=== PATIENT | female | born 1940 | race Caucasian/White ===

== ENCOUNTER 2016-12-09 23:34 | Emergency (ER) | payer OTHER ==
[~2016-12-09] VITALS: Ht 152.4 cm; Wt 49.8 kg
[2016-12-09 23:36] VITALS: TEMP 36.7; Ht 152.4 cm; Wt 49.8 kg
[2016-12-09] MEDS ORDERED: KETOROLAC TROMETHAMINE 30 MG/ML VIAL IV STA (23:57)
[2016-12-10] MEDS ORDERED: AMLO-110 PO (00:08)
[2016-12-10] MEDS ORDERED: ACET-1256 PO (00:08)
[2016-12-10] MEDS ORDERED: CITA10TA4 PO (00:09)
[2016-12-10 00:21] LABS: COMPLETE YES; EOS % 0.1 %; HEMATOCRIT 35.4 % (37-47); IG% 0.4 %; LYMPH % 7.2 %; LYMPH ABS # 0.72 K/uL (1.2-3.4); MEAN CELL VOLUME 86.6 fL (80-100); MEAN CORPUSCULAR HEMOGLOBIN 30.3 pg (25-34); MEAN PLATELET VOLUME 9.1 fL (7.4-10.4); MONO % 3.7 %; NEUT % 88.6 %; PLATELET COUNT 403 K/uL (130-400); RED BLOOD COUNT 4.09 M/uL (4.2-5.4); WHITE BLOOD COUNT 9.97 K/uL (4.8-10.8)
[2016-12-10 00:40] LABS: BUN/CREATININE RATIO 13.7 (10-20); CALCIUM 9.2 mg/dl (8.5-10.1); CREATININE 0.78 mg/dl (0.60-1.20); POTASSIUM 3.8 mmol/L (3.5-5.1)
[2016-12-10 00:42] LABS: ALB/GLOB RATIO 0.6 (0.9-2)
[2016-12-10] MEDS ORDERED: HYDROmorphone INJ 0.5 MG/0.5 ML SYR IV STA (01:09)
[2016-12-10] MEDS ORDERED: OXYC-57 PO (02:42)
[2016-12-10 02:50] VITALS: BP 105/71; PULSE 97; O2SAT 94
--- NOTE | 2016-12-10 02:58 | EMERGENCY ROOM VISIT NOTE ---
History Report prepared by Génesis: Radha Spivey Under the Supervision of: Dr. Lesli Thao D.O. First contact with patient: 23:43 Chief Complaint: BACK PAIN Stated Complaint: PAIN IN BACK History of Present Illness The patient is a 76 year old female who presents to the Emergency Room with complaints of intermittent right-sided back pain starting a couple months ago. The history is provided by a family member who is acting as a sanitarian. The pain is in her right upper back. She currently rates the pain as a 9/10 in severity. The pain has been coming more frequently recently. The patient was seen at [facility] this week for post menopausal bleeding and back pain. She is scheduled for a mammogram and pelvic ultrasound in the coming month. She was told the back pain was arthritis. She also complains of right leg pain. She had not been eating or drinking well and has lost weight. She denies any urinary symptoms or problems with her bowel movements. He thinks that she might be homesick and depressed. He is from [facility] and has been here for the past 5 months. She has a history of hypertension. She has breast cancer 12 years ago and had a mastectomy. She had radiation at the time, but no chemo. She is checked every year for cancer. She denies any history of heart or lung problems. Source of History: patient, family Onset: couple months ago Position: back (right upper) Symptom Intensity: 9/10 Quality: other (pain) Timing: intermittent Associated Symptoms: No melena, No hematochezia, No diarrhea, No urinary symptoms Note: Pt has decreased appetite, weight loss, right leg pain. Review of Systems See HPI for pertinent positives & negatives. A total of 10 systems reviewed and were otherwise negative. Past Medical & Surgical Medical Problems: (1) Breast cancer (2) Hypertension Family History No pertinent family history stated. Social History Smoking Status: Never Smoker Housing Status: lives with family Occupation Status: retired Current/Historical Medications Scheduled Amlodipine (Norvasc), 5 MG PO DAILY Citalopram Hydrobromide (Citalopram Hydrobromide), 10 MG PO DAILY Scheduled PRN Acetaminophen (Tylenol), 1,000 MG PO Q6H PRN for Pain or Fever Oxycodone/Acetaminophen 5MG/325MG (Percocet 5MG/325MG), 1 TABLET PO Q4H PRN for Pain Allergies Coded Allergies: No Known Allergies (Unverified , 12/10/16) Physical Exam Vital Signs Date Time Temp Pulse Resp B/P (MAP) Pulse Ox O2 Delivery O2 Flow Rate FiO2 12/10/16 02:50 97 18 105/71 94 12/10/16 01:23 114 18 112/68 94 Room Air 12/09/16 23:36 36.7 124 20 107/70 94 Room Air Physical Exam HEENT: Head - normocephalic and atraumatic Pupils are equal, round, and reactive to light. Extraocular eye muscles are intact, and sclera are anicteric. Nose - moist nasal mucosa without discharge. Mouth - moist buccal mucosa. Oropharynx is nonerythematous and there is no tonsillar exudate or edema noted. Neck: Supple; no JVD, nuchal rigidity, cervical lymphadenopathy. Chest: Right mastectomy. Heart: Tachycardic rate and regular rhythm. There is a normal S1 and S2 with no murmurs, clicks, or gallops appreciated. Lungs: Clear to auscultation bilaterally with no wheezes, rales, or rhonchi. Abdomen: Soft, completely nontender, nondistended, with good bowel sounds. There are no palpable pulsatile masses or hepatosplenomegaly. There is no guarding, rigidity, or rebound noted. Extremities: No evidence of cyanosis, clubbing, or edema. There are easily palpable peripheral pulses. Pain with palpation of the right knee. Skin: warm and dry with good turgor and no rashes. Medical Decision & Procedures ER Provider Diagnostic Interpretation: X-ray results as stated below per interpretation by me. Radiology results as stated below per my review and the [facility] radiologist's interpretation: Chest X-ray: Poor inspiratory effort, questionable hilar adenopathy. CT chest without contrast: Bronchiectasis and scarring noted within the right lung apex. Bibasilar atelectasis and/or scarring. An inflammatory or infectious process is not excluded. No focal consolidation. No pleural effusion or pneumothorax. Subcentimeter mediastinal and hilar lymph nodes, which are nonspecific. Postsurgical changes within the right breast. Multiple hypodensities seen throughout the liver suggesting metastatic disease. No acute osseous abnormality. Laboratory Results 12/10/16 00:00 Red Blood Count 4.09, Mean Corpuscular Volume 86.6, Mean Corpuscular Hemoglobin 30.3, Mean Corpuscular Hemoglobin Concent 35.0, Mean Platelet Volume 9.1, Neutrophils (%) (Auto) 88.6, Lymphocytes (%) (Auto) 7.2, Monocytes (%) (Auto) 3.7, Eosinophils (%) (Auto) 0.1, Basophils (%) (Auto) 0.0, Neutrophils # (Auto) 8.83, Lymphocytes # (Auto) 0.72, Monocytes # (Auto) 0.37, Eosinophils # (Auto) 0.01, Basophils # (Auto) 0.00 12/10/16 00:00 Test 12/10/16 00:00 White Blood Count 9.97 K/uL (4.8-10.8) Red Blood Count 4.09 M/uL (4.2-5.4) Hemoglobin 12.4 g/dL (12.0-16.0) Hematocrit 35.4 % (37-47) Mean Corpuscular Volume 86.6 fL (80-100) Mean Corpuscular Hemoglobin 30.3 pg (25-34) Mean Corpuscular Hemoglobin Concent 35.0 g/dl (32-36) Platelet Count 403 K/uL (130-400) Mean Platelet Volume 9.1 fL (7.4-10.4) Neutrophils (%) (Auto) 88.6 % Lymphocytes (%) (Auto) 7.2 % Monocytes (%) (Auto) 3.7 % Eosinophils (%) (Auto) 0.1 % Basophils (%) (Auto) 0.0 % Neutrophils # (Auto) 8.83 K/uL (1.4-6.5) Lymphocytes # (Auto) 0.72 K/uL (1.2-3.4) Monocytes # (Auto) 0.37 K/uL (0.11-0.59) Eosinophils # (Auto) 0.01 K/uL (0-0.5) Basophils # (Auto) 0.00 K/uL (0-0.2) RDW Standard Deviation 39.7 fL (36.4-46.3) RDW Coefficient of Variation 12.5 % (11.5-14.5) Immature Granulocyte % (Auto) 0.4 % Immature Granulocyte # (Auto) 0.04 K/uL (0.00-0.02) Anion Gap 7.0 mmol/L (3-11) Est Creatinine Clear Calc Drug Dose 44.8 ml/min Estimated GFR () 86.2 Estimated GFR (Non- 74.4 BUN/Creatinine Ratio 13.7 (10-20) Calcium Level 9.2 mg/dl (8.5-10.1) Total Bilirubin 0.3 mg/dl (0.2-1) Aspartate Amino Transf (AST/SGOT) 98 U/L (15-37) Alanine Aminotransferase (ALT/SGPT) 18 U/L (12-78) Alkaline Phosphatase 142 U/L (45-117) Total Protein 8.1 gm/dl (6.4-8.2) Albumin 3.1 gm/dl (3.4-5.0) Globulin 5.0 gm/dl (2.5-4.0) Albumin/Globulin Ratio 0.6 (0.9-2) Laboratory results per my review. Medications Administered Medications (Trade) Dose Ordered Sig/Kwaku Route Start Time Stop Time Status Last Admin Dose Admin Ketorolac Tromethamine (Toradol Inj) 30 mg NOW STAT IV 12/09/16 23:57 12/10/16 00:01 DC 12/10/16 00:10 30 MG Hydromorphone HCl (Dilaudid Inj) 0.5 mg NOW STAT IV 12/10/16 01:09 12/10/16 01:11 DC 12/10/16 01:21 0.5 MG Procedure Medications: Toradol Inj 30 mg IV, Dilaudid Inj 0.5 mg IV. ED Course 2346: The patient was evaluated in room B12B. A complete history and physical examination were performed. Nursing notes and previous electronic medical records were reviewed. IV lock was established and labs were drawn as above. 2357: Toradol Inj 30 mg IV. The patient had a chest x-ray as described above. 0108: The patient is asking for something more for pain. She will be going for CT. 0109: Dilaudid Inj 0.5 mg IV. 0112: I reevaluated the patient. I updated her and her family on the results. 0232: Upon reevaluation, the patient has had significant relief of her pain with the Dilaudid. I discussed findings and results with her and her family. They verbalized agreement of the treatment plan. She was discharged home. Medical Decision The patient is a 76 year old female who presents to the ED with back pain. Differential diagnosis includes arthritis, pneumonia, metastatic breast cancer, cholecystitis, depression. Labs: sodium 130, chloride 97, normal renal function, glucose 157, normal calcium, alk phos slightly elevated at 142, stable H&H, normal white count. This is a 76-year-old female patient with intermittent episodes of right-sided upper back pain. The patient has a remote history of breast cancer with right- sided mastectomy. I was concerned for lymphadenopathy on the chest x-ray. CT scan shows minor hilar lymphadenopathy with no acute right lung or right chest cavity findings. However, the patient had cut some findings concerning for metastatic cancer to the liver. The patient got relief of the pain here in the emergency room. She will be discharged home on Percocet. The family plans to follow-up with Dr. Lemos as a primary care physician while she is in this country. I recommended they alert him to the findings on CT scan for follow-up. I considered the possibility of referred pain from the liver to the right upper back. This could be the source of her discomfort. [place] Drug Monitoring Program Search Results: patient reviewed within database, no issues identified Medication Reconcilliation Current Medication List: was personally reviewed by me Blood Pressure Screening Patient's blood pressure: Normal blood pressure Blood pressure disposition: Did not require urgent referral Impression Primary Impression: Right-sided back pain Additional Impression: Metastatic cancer Scribe Attestation The scribe's documentation has been prepared under my direction and personally reviewed by me in its entirety. I confirm that the note above accurately reflects all work, treatment, procedures, and medical decision making performed by me. Departure Information Dispostion Home / Self-Care Prescriptions Oxycodone/Acetaminophen 5MG/325MG (PERCOCET 5MG/325MG) Tab 1 TABLET PO Q4H Y for Pain, #20 TAB Prov: Lesli Thao D.O. 12/10/16 Referrals No Doctor, Assigned (PCP) Salvador Lemos III, M.D. Forms HOME CARE DOCUMENTATION FORM, IMPORTANT VISIT INFORMATION Patient Instructions My [facility] [employer] Additional Instructions Percocet - 1 tab. every 4 hours for pain. Please be careful on this med. Take a stool softner to prevent constipation Follow up with PCP for eval of metastatic cancer. Problem Qualifiers Primary Impression: Right-sided back pain Back pain location: thoracic back pain Chronicity: chronic Qualified Codes : M54.6 - Pain in thoracic spine; G89.29 - Other chronic pain
--- NOTE | 2016-12-10 05:32 | DIAGNOSTIC IMAGING REPORT ---
CHEST 2 VIEWS ROUTINE CLINICAL HISTORY: 76 years-old Female presenting with right sided back pain. TECHNIQUE: PA and lateral views of the chest were obtained. COMPARISON: None. FINDINGS: Postsurgical changes of right mastectomy. Atherosclerosis of aortic arch. Cardiac silhouette normal in size. Elevation of the right hemidiaphragm. Bandlike opacity in the lingula and left lung base. Reticular paramediastinal opacities along the right apex. Osseous structures normal. Upper abdomen normal. IMPRESSION: 1. Right paramediastinal and left basilar opacities likely scarring or atelectasis. Electronically signed by: José Nickerson M.D. 12/10/2016 5:31 AM Dictated Date/Time: 12/10/2016 5:29 AM
--- NOTE | 2016-12-10 06:12 | DIAGNOSTIC IMAGING REPORT ---
(CHEST) THORAX WITHOUT CT DOSE: 149.06 mGy.cm CLINICAL HISTORY: 76 years-old Female with eval hilar adenopathy and right sided back pain;h/o breast CA. Acute right-sided back pain with history of breast cancer and prior right mastectomy TECHNIQUE: Multiaxial CT images of the chest were performed without contrast. A dose lowering technique was utilized adhering to the principles of ALARA. COMPARISON: Chest radiographs 12/10/2016 FINDINGS: No dominant thyroid nodule identified. Evaluation for adenopathy is limited without the use of IV contrast. Within the limitations of the study no pathologically enlarged lymph nodes are seen by CT size criteria. Heart is mildly enlarged with coronary arterial calcifications. There is moderate atherosclerotic plaquing of the thoracic aorta. Main pulmonary artery is mildly dilated at 3.1 cm suspicious for pulmonary arterial hypertension. There is no pneumothorax or pleural effusion. Linear subsegmental consolidative opacities in the right lung apex, medial segment right middle lobe and bilateral lung bases suggests pleural parenchymal scarring with mild traction bronchiectasis also seen within these distributions. Some of these changes may be post therapeutic as the patient has had prior right mastectomy. 5 mm noncalcified pulmonary nodule involves the medial basal segment right lower lobe on image 141 of the axial series. 4 mm noncalcified pulmonary nodule involves the right middle lobe on image 112. Central airways are patent. Patchy areas of is a continuation of the lung bases suggest air trapping. Multiple low attenuating ill-defined lesions throughout the hepatic parenchyma are seen, largest of which is within the right lobe measuring up to 3.4 cm suggesting metastasis. Small hiatal hernia is incidentally noted. Bones are moderately demineralized without definite bony metastasis is seen. IMPRESSION: 1. Linear subsegmental consolidative opacities with associated traction bronchiectasis within the right upper and middle lobes as well as the bilateral lung bases suggests pleural parenchymal scarring with areas of air trapping. Some of these changes on the right are likely post-therapeutic related with evidence of prior right mastectomy. 2. No definite pathologic-appearing adenopathy. 3. Multiple low attenuating lesions throughout the liver suggest metastasis. 4. Small hiatal hernia. 5. Solid noncalcified pulmonary nodules throughout the left lung measuring up to 5 mm are indeterminate. Please refer to below summary of Fleischner criteria recommendations for follow-up of incidental CT nodules (H Cole, Guidelines for management of small pulmonary nodules detected on CT scans: A statement from the Fleischner Society, Radiology 237: [phone].) SOLID NODULES Solitary nodule size: <6 mm * Low risk patients: no follow-up needed * high risk patients: optional CT at 12 months Solitary nodule size: 6-8 mm * Low risk patients: follow-up at 6-12 months, then consider further follow-up at 18-24 months * high risk patients: initial follow-up CT at 6-12 months and then at 18-24 months if no change Solitary nodule size: >8 mm * either low or high risk patients - consider follow-up CT at 3 months, and/or CT-PET, and/or biopsy Multiple nodules size: <6 mm * Low risk patients: no routine follow-up * high risk patients: optional CT at 12 months Multiple nodules size: 6-8 mm * Low risk patients: follow-up at 3-6 months, then consider further follow-up at 18-24 months * high risk patients: follow-up at 3-6 months, then at 18-24 months if no change Multiple nodules size: >8 mm * Low risk patients: follow-up at 3-6 months, then consider further follow-up at 18-24 months * high risk patients: follow-up at 3-6 months, then at 18-24 months if no change Note: newly detected indeterminate nodule in persons 35 years of age or older. * Low risk patients: minimal or absent history of smoking and/or other known risk factors * high risk patients: history of smoking or of other known risk factors (e.g. first degree relative with lung cancer, or exposure to asbestos, radon, uranium) * if a nodule up to 8 mm is partly solid or is ground glass further follow-up is required after 24 months to exclude possible slow growing adenocarcinoma (RIKA) SUBSOLID NODULES Solitary pure ground-glass nodule * nodule size <6 mm - no CT follow-up required * nodule size >=6 mm - follow-up CT at 6-12 months, then every 2 years until 5 years Solitary part-solid nodule * nodule size <6 mm - no CT follow-up required * nodule size >=6 mm - follow-up CT at 3-6 months. If unchanged, and solid component remains <6 mm, then annual follow-up for 5 years Multiple subsolid nodules * nodule size <6 mm - follow-up CT at 3-6 months, consider further follow-up at 2 and 4 years if stable * nodule size >=6 mm - follow-up CT at 3-6 months, subsequent management based on the most suspicious nodule(s) The above report was generated using voice recognition software. It may contain grammatical, syntax or spelling errors. Electronically signed by: Andrea Coon M.D. 12/10/2016 6:11 AM Dictated Date/Time: 12/10/2016 6:02 AM
[2017-01-03] MEDS ORDERED: OXYC-57 PO (10:00)
[2017-01-03] MEDS ORDERED: DOCU100C31 PO (10:02)
[2017-01-03] MEDS ORDERED: DXM/4 PO (10:03)
[2017-01-03] MEDS ORDERED: LEVO25TA5 PO (10:05)
== END 2016-12-10 02:52 | disposition home or self-care (01) ==
LOC: C.EDB 23:36
DX: M54.6 Pain in thoracic spine (principal); G89.29 Other chronic pain; C50.919 Malignant neoplasm of unspecified site of unspecified female breast; I10 Essential (primary) hypertension

== ENCOUNTER → 2016-12-28 | Outpatient (CLI) | payer OTHER ==
[~2016-12-28] MED LIST: ACET-1256 PO; AMLO-110 PO; CITA10TA4 PO; DOCU100C31 PO; DXM/4 PO; LEVO25TA5 PO; OXYC-57 PO
--- NOTE | 2016-12-28 17:26 | DIAGNOSTIC IMAGING REPORT ---
MRI THORACIC SPINE WITHOUT CLINICAL HISTORY: Z85.3, K76.9, R79.89, R10.11, M54.42, M54.2 HISTORY OF BREAST CARCINOMA. SEVERE PAIN WITH BILATERAL ARM RADICULOPATHY. INABILITY TO AMBULATE. PRIOR STUDIES: None TECHNIQUE: MR scanning of the thoracic spine was performed using multiple pulse sequences. No gadolinium was administered. FINDINGS: There are areas of marrow replacement involving every visible cervical, thoracic and lumbar vertebral body. The findings are consistent with diffuse extensive metastatic disease. There is a mild pathologic T10 compression fracture. Mild epidural disease is suspected the T9-10 level with involvement of the right neural foramen. No cord lesions are visualized on this noncontrast study. There are innumerable hepatic masses viewed as highly suspicious for metastatic disease. Sagittal ordnance engineer images demonstrate a possible pelvic mass. IMPRESSION: 1. Diffuse skeletal metastasis involving every visible cervical thoracic and lumbar vertebral body 2. Mild epidural tumor spread at the T9-T10 level with involvement of the right neural foramen 3. No cord lesions are visualized on this noncontrast study 4. Multiple hepatic masses consistent with metastasis 5. Small right pleural effusion 6. Sagittal ordnance engineer images demonstrate a possible pelvic mass. Electronically signed by: Leonidas Barriga M.D. 12/28/2016 5:25 PM Dictated Date/Time: 12/28/2016 5:16 PM
--- NOTE | 2016-12-28 17:56 | DIAGNOSTIC IMAGING REPORT ---
MRI OF THE LUMBAR SPINE WITHOUT CONTRAST CLINICAL HISTORY: Left-sided low back pain with left-sided sciatica. History of breast cancer. COMPARISON STUDY: No previous studies for comparison. TECHNIQUE: Utilizing a 1.5 Humaira magnet and dedicated coil, multiplanar, multiecho imaging of the lumbar spine was performed without IV contrast. FINDINGS: Wheel Truing Machine Tender images demonstrate multiple abdominal and pelvic masses which are suboptimally assessed on this exam. An index left abdominal mass measures 7.9 cm. There is a partially visualized large cystic right lower quadrant mass that measures at least 7 cm in size. A left lower abdominal/pelvic mass measures at least 10.7 cm. The endometrium is thickened. There is T2 hyperintense material within the endometrium. There are numerous enlarged retroperitoneal lymph nodes. Index left periaortic lymph node measures 3.2 cm. Hepatic lesions are noted. Widespread marrow replacement is identified throughout visual skeletal structures consistent with a neoplastic process and metastatic disease is favored. The conus terminates at the L2-L3 level. Note is made of minimal epidural extension of tumor located posterior to several vertebral bodies, most evident at the L5 level. There is a pathologic fracture of T10 with moderate loss of vertebral body height. There is slight loss of height of the superior plate of L4 which suggests a pathologic fracture. A small amount of pelvic ascites is noted. L1-2: The central canal and neural foramen are patent. L2-3: There is mild disc bulge. The central canal and neural foramina patent. L3-4: There is mild disc bulge and facet arthrosis. The central canal and neural foramen are patent. L4-5: There is mild disc bulge and facet arthrosis. The central canal and neural foramen are patent. L5-S1: There is slight anterolisthesis. There is mild disc bulge. Central canal is patent. There is mild narrowing of the left neural foramen. IMPRESSION: 1. Findings consistent with widespread metastatic disease, including innumerable skeletal and hepatic metastases, retroperitoneal lymphadenopathy and multiple large abdominal and pelvic masses which are suboptimally assessed on this exam. A CT of the abdomen and pelvis could be obtained. 2. Pathologic fractures of T10 and L4. Minimal epidural extension of tumor at several levels, as described above. 3. Mild multilevel degenerative disc disease and facet arthrosis. 4. Endometrial thickening which is abnormal in a postmenopausal patient. Electronically signed by: Hawk Ness M.D. 12/28/2016 5:55 PM Dictated Date/Time: 12/28/2016 5:44 PM
== END | disposition home or self-care (01) ==
LOC: C.MRI 15:54
PROVIDERS: ATTEND Internal Medicine Hematology & Oncology
DX: Z85.3 Personal history of malignant neoplasm of breast (principal); K76.9 Liver disease, unspecified; R79.89 Other specified abnormal findings of blood chemistry; R10.11 Right upper quadrant pain; M54.42 Lumbago with sciatica, left side; M54.2 Cervicalgia

== ENCOUNTER → 2017-01-02 | Outpatient (CLI) | payer OTHER ==
--- NOTE | 2017-01-02 17:05 | DIAGNOSTIC IMAGING REPORT ---
MRI CERVICAL WITHOUT CONTRAST CLINICAL HISTORY: Persistent neck pain with bilateral arm radiculopathy. History of breast carcinoma. TECHNIQUE: Sagittal and axial T1, T2 and STIR images were obtained. COMPARISON STUDY: No previous studies for comparison. There are areas of marrow replacement involving every visible vertebral body, as well as the calvarium and clivus consistent with widespread metastatic disease. C2-3: There is no evidence of disc bulge or focal herniation. There is no spinal or foraminal stenosis. C3-4: There is a small central disc protrusion with mild narrowing of the anterior subarachnoid space C4-5: There is a mild circumferential disc bulge with minor spinal stenosis. There is mild left-sided foraminal narrowing C5-6 :There is a mild pathologic compression fracture. There is suspected tumor extension into the right paravertebral soft tissues. C6-7: There is a pathologic C6 fracture. There is expansion of the vertebral body with secondary spinal canal narrowing. There is probable epidural tumor spread posterior laterally on the right. C7-T1: There is no evidence of disc bulge or focal herniation. There is no evidence of spinal or foraminal stenosis. IMPRESSION: 1. Widespread metastatic disease with involvement of every visible vertebral body, calvarium, and colitis. 2. Mild pathologic compression fractures at the C5 and C6 levels 3. Posterior bowing of the C6 vertebra, secondary to neoplasm. This results in mild narrowing of the spinal canal. There is probable right posterior lateral epidural tumor spread. There is suspected tumor infiltration into the right paravertebral soft tissues. Electronically signed by: Leonidas Barriga M.D. 01/02/2017 5:04 PM Dictated Date/Time: 01/02/2017 4:58 PM
== END | disposition home or self-care (01) ==
LOC: C.MRI 15:55
PROVIDERS: ATTEND Internal Medicine Hematology & Oncology
DX: C79.51 Secondary malignant neoplasm of bone (principal); M84.48XA Pathological fracture, other site, initial encounter for fracture